=== PATIENT | male | born 1965 | race Caucasian/White ===

== ENCOUNTER 2019-03-31 09:05 | Emergency (ER) | payer BC, OTHER ==
[~2019-03-31] VITALS: Ht 182.9 cm; Wt 97.7 kg
[2019-03-31 09:07] VITALS: Ht 182.9 cm; Wt 97.7 kg
[2019-03-31] MEDS ORDERED: SOD CHLORIDE 0.9% 1,000 ML IV STA (09:31)
[2019-03-31] MEDS ORDERED: ONDANSETRON 4 MG INJ IV STA (09:31)
[2019-03-31] MEDS ORDERED: KETOROLAC 15 MG INJ IV STA (09:31)
[2019-03-31] MEDS ORDERED: LISI10TA2 PO (10:05)
[2019-03-31] MEDS ORDERED: IBUP-1542 PO (10:40)
[2019-03-31] MEDS ORDERED: OXYC-279 PO (10:40)
[2019-03-31] MEDS ORDERED: ONDA4TAB8 PO (10:40)
--- NOTE | 2019-03-31 10:44 | ERD ---
ER Documentation Chief Complaint Chief Complaint L.side flank pain x this am, denies pain with urination HPI 53-year-old man with a history of left kidney stone presents with constant left flank pain beginning about 2 to 3 hours prior to arrival. Pain was constant and radiating to the left groin with associated nausea but no vomiting. Patient states his pain felt similar to prior episode of kidney stone which was diagnosed on a CT scan years ago. He denies hematuria, no fevers or chills, no chest pain or shortness of breath, no headache or blurry vision. ROS All systems reviewed and are negative except as per history of present illness. Medications Home Meds Active Scripts Ondansetron Hcl* (Zofran*) 4 Mg Tablet, 4 MG PO Q8H PRN for NAUSEA AND/OR VOMITING, #30 TAB Prov:MAGAN CANSECO MD 03/31/19 Oxycodone HCl/Acetaminophen (Percocet 5-325 mg Tablet) 1 Each Tablet, 1 EACH PO TID PRN for PAIN LEVEL 6-10, #9 TAB Prov:MAGAN CANSECO MD 03/31/19 Ibuprofen* (Motrin*) 600 Mg Tab, 600 MG PO Q8 PRN for PAIN AND/OR INFLAMMATION, #30 TAB Prov:MAGAN CANSECO MD 03/31/19 Reported Medications Lisinopril* (Lisinopril*) 10 Mg Tablet, 10 MG PO DAILY, #30 TAB 03/31/19 Allergies Allergies: Coded Allergies: No Known Allergy (Unverified , 03/31/19) PMhx/Soc History of Surgery: Yes (SHOULDER,HERNIA REPAIR) Anesthesia Reaction: No Hx Respiratory Disorders: No Hx Psychiatric Problems: No Hx Alcohol Use: No Hx Substance Use: No Hx Tobacco Use: No Smoking Status: Never smoker FmHx Family History: No diabetes Physical Exam Vitals Vital Signs Date Temp Pulse Resp B/P (MAP) Pulse Ox O2 O2 Flow FiO2 Time Delivery Rate 03/31/19 98.1 74 19 141/92 96 09:07 (108) Physical Exam GENERAL: Well-developed, well-nourished, well-hydrated, in no apparent distress, looks nontoxic in appearance HEENT: Moist mucous membranes, pink conjunctiva, no cervical spine tenderness or step-off deformities, no goiter, no jaundice or icterus, extraocular movements intact without pain. No submandibular induration, and no pharyngeal erythema NEURO: Alert and oriented 3, cranial nerves II through XII intact bilaterally, pupils equal round reactive to light, no focal deficits or facial asymmetry, sensation intact distally Strength 5/5 in upper and lower extremities bilaterally CARDIAC: Regular rate and rhythm, no murmurs rubs or gallops LUNGS: Clear bilaterally no wheezing crackles or stridor ABDOMEN: Soft nontender, no guarding, no rigidity, no rebound, no psoas sign no obturator sign. Normoactive bowel sounds SKIN: Warm and dry to touch, no abrasions, contusions, or hematomas, no lacera tions, no ecchymosis, no target lesions, and without ulcers EXTREMITIES: No clubbing cyanosis or edema, calves are bilaterally symmetrical, no Homans sign, no popliteal cord sign. Distal pulses equal and bilateral PSYCH: Normal affect without agitation or irritability Result Diagram: 03/31/1930 03/31/19 0930 Results 24 hrs Laboratory Tests Test 03/31/19 09:30 White Blood Count 5.5 10^3/ul Red Blood Count 5.20 10^6/ul Hemoglobin 15.9 g/dl Hematocrit 45.9 % Mean Corpuscular Volume 88.3 fl Mean Corpuscular Hemoglobin 30.6 pg Mean Corpuscular Hemoglobin Concent 34.6 g/dl Red Cell Distribution Width 11.8 % Platelet Count 233 10^3/UL Mean Platelet Volume 9.9 fl Immature Granulocytes % 0.500 % Neutrophils % 60.0 % Lymphocytes % 30.7 % Monocytes % 7.3 % Eosinophils % 1.1 % Basophils % 0.4 % Nucleated Red Blood Cells % 0.0 /100WBC Immature Granulocytes # 0.030 10^3/ul Neutrophils # 3.3 10^3/ul Lymphocytes # 1.7 10^3/ul Monocytes # 0.4 10^3/ul Eosinophils # 0.1 10^3/ul Basophils # 0.0 10^3/ul Nucleated Red Blood Cells # 0.0 10^3/ul Urine Color YELLOW Urine Clarity CLEAR Urine pH 8.0 Urine Specific [place] 1.016 Urine Ketones NEGATIVE mg/dL Urine Nitrite NEGATIVE mg/dL Urine Bilirubin NEGATIVE mg/dL Urine Urobilinogen NEGATIVE mg/dL Urine Leukocyte Esterase NEGATIVE Madan/ul Urine Microscopic RBC 107 /HPF Urine Microscopic WBC 1 /HPF Urine Hemoglobin 2+ mg/dL Urine Glucose NEGATIVE mg/dL Urine Total Protein NEGATIVE mg/dl Sodium Level 141 mmol/L Potassium Level 4.0 mmol/L Chloride Level 103 mmol/L Carbon Dioxide Level 25 mmol/L Anion Gap 13 Blood Urea Nitrogen 24 mg/dl Creatinine 1.13 mg/dl Est Glomerular Filtrat Rate mL/min > 60 mL/min Glucose Level 147 mg/dl Calcium Level 9.6 mg/dl Current Medications Medications Dose Sig/Suellen Start Time Status Last (Trade) Ordered Route PRN Stop Time Admin Dose Reason Admin Sodium 1,000 ml @ Q1H STAT 03/31/19 DC 03/31/19 Chloride 1,000 mls/hr IV 09:31 09:47 03/31/19 10:30 Ondansetron 4 mg ONCE STAT 03/31/19 DC 03/31/19 HCl (Zofran IV 09:31 09:47 Inj) 03/31/19 09:32 Ketorolac 15 mg ONCE STAT 03/31/19 DC 03/31/19 Tromethamine IV 09:31 09:47 (Toradol) 03/31/19 09:32 Procedures/MDM IV line was established patient was placed on shelter monitor rhythm strip revealed a sinus rhythm at about 80 bpm with upright P and T waves. Patient was afebrile I administered 1 L normal saline IV, Toradol 15 mg IV, Zofran 4 mg IV CBC and electrolytes are normal, urinalysis is negative for infection with urine hemoglobin positive Differential diagnoses considered, included but not limited to acute coronary syndrome, pulmonary embolism, aortic dissection, abdominal aortic aneurysm, sepsis, stroke, meningitis, encephalitis, pneumonia, appendicitis, cholecystitis, bowel obstruction, pyelonephritis, nephrolithiasis, cystitis, as well as metabolic, hematologic, and electrolyte abnormalities. As well as abscess, cellulitis, fractures, and dislocations. Patient feels much better at this time, and vital signs are normal, symptoms have improved. I did give strict instructions to return to the ED if symptoms continue or worsen, patient will otherwise follow-up with primary care physician. Patient understood instructions and agreed to plan. Disclaimer: Inadvertent spelling and grammatical errors are likely due to EHR/dictation software use and do not reflect on the overall quality of patient care. Also, please note that the electronic time recorded on this note does not necessarily reflect the actual time of the patient encounter. Departure Diagnosis: Primary Impression: Flank pain Additional Impression: Ureterolithiasis Condition: Good Patient Instructions: Kidney Stone W/ Jovitac MAGAN CANSECO MD March 31, 2019 10:43
[2019-03-31 11:00] VITALS: BP 130/79; PULSE 79; RESP 18
== END 2019-03-31 11:01 | disposition home or self-care (01) ==
LOC: EDSEX 09:05 → E/R 09:05
DX: N20.1 Calculus of ureter (principal)
CPT/HCPCS: 36415; 80048; 81001; 85025; 96374; 96375; 99284; J1885; J2405; J7030